=== PATIENT | male | born 1975 | race Caucasian/White ===

== ENCOUNTER 2019-04-08 22:43 | Emergency (ER) | payer SELFPAY ==
[~2019-04-08] VITALS: Ht 167.6 cm; Wt 122.7 kg
[~2019-04-08 22:43] MED LIST: NOCURR
[2019-04-09] MEDS ORDERED: PERTUSS(ACELL),DIPH,TET VAC/PF 0.5 ML VIAL IM ONE (01:00)
[2019-04-09 01:25] VITALS: BP 164/88
== END 2019-04-09 01:35 | disposition home or self-care (01) ==
LOC: EMS 22:43
DX: S91.312A Laceration without foreign body, left foot, initial encounter (principal); S61.012A Laceration without foreign body of left thumb without damage to nail, initial encounter; R03.0 Elevated blood-pressure reading, without diagnosis of hypertension; F17.210 Nicotine dependence, cigarettes, uncomplicated; W25.XXXA Contact with sharp glass, initial encounter; Y93.89 Activity, other specified; Y92.89 Other specified places as the place of occurrence of the external cause; Y99.8 Other external cause status
CPT/HCPCS: 12001; 90471; 90715